=== PATIENT | male | born 1960 | race Caucasian/White ===

== ENCOUNTER 2022-03-01 00:30 | Day surgery (SDC) | payer MEDICARE, MEDICAID, SELFPAY ==
[2022-02-22 14:54] VITALS: BMI 28.3
--- NOTE | 2022-02-23 08:35 | PC.NURSE ---
Report to the Outpatient Waiting Room, entrance under the green pavilion located off [facility], at time 6:00 on date 03/01/22. Procedure Time: 7:30. - You and your visitor will be asked a series of questions to screen for COVID 19 for your protection. - A mask is required within the hospital. One visitor will be allowed to accompany the patient into the hospital. Patients visitor will be instructed to remain with patient at all times or leave the building. We will allow the visitor to come back to the postoperative area when patient is ready. Preoperative COVID Testing Requirements: No COVID Test needed if: (proof is required; if not received patient will have Rapid Test prior to entry) - Patient has received COVID Vaccine at least 14 days prior to procedure date or - Patient has positive COVID test result within last 90 days of surgery date. COVID Test needed if above criteria is not met Patients may have clear liquids (water, carbonated beverages, clear teas, apple juice) until 3 hours prior to surgery (4:30) with a maximum of 20 ounces. - No food from midnight until time of surgery Take the following medications with a SIP of water the morning of surgery: AMLODIPINE, LEVOTHYROXINE Medications to discontinue per physician: VITAMINS/SUPPLEMENTS Date to take last dose: 02/25/22 Please no make-up, nail georgian, hairspray, perfume, deodorant, or body powder the day of surgery. No jewelry (including any body piercings) or valuables the day of surgery, leave them at home. Please take a shower or bath the night before, or the morning of, surgery with an antibacterial soap. Wear comfortable, loose fitting clothing. - Jewelry must be removed prior to entering the operating room. Rings and piercings that are not removed may be cut off. - The hospital will not accept responsibility for valuables. - Please leave all valuables, including medications, at home the day of surgery. If you are going home after surgery, a licensed bookmobile driver must drive you home. - NO public transportation without another adult. - We recommend that an adult stay with you for 24 hours following discharge. - We also recommend that you do not drive, make important decision, drink alcoholic beverages, or take any drugs that were not prescribed by your health care provider for at least 24 hours after your discharge time. Follow any additional instructions given to you from your surgeon. WRITTEN instructions FAXED to [facility]DR[facility] and asked if any additional questions and then verbalized understanding. Patient advised to call surgeon office or pre surgery nurse liaison [phone] if any additional questions.
[2022-03-01] VITALS (9 sets, daily range): BP systolic 71–140; BP diastolic 34–79; PULSE 61–91; RESP 14–18; TEMP 36.1; O2SAT 96–100
--- NOTE | ~2022-03-01 | XR_ITS ---
EXAMINATION: XR urethrocystogram EXAM DATE: 03/01/2022 08:13 INDICATION: Urethral stricture. TECHNIQUE: Fluoroscopy used during XR urethrocystogram performed by Dr. Stephen Whiting MD. Radiologist was not present for the imaging or procedure. Total fluoroscopic time of 19 seconds. Th e DAP for this procedure was 0.2 mGym2. A total of 8 images sent to PACS from the exam. There is no prior study for comparison. FINDINGS: The urethra was injected. There is some stricturing of the urethra suspected probably rachelle g the bulbous portion or bulbomembranous junction. Probable dilation of the urethra. Left of the bladder there is focal region which appears to fill with contrast, most likely a bladder diverticulum given its size approximately 1.5 x 3 cm. Correlate with procedure note. IMPRESSION: Fluoroscopy used during cystourethrogram. Reviewed, dictated and finalized at location A.
--- NOTE | 2022-03-01 06:28 | P.PNAN_ITS ---
Anes - Initial Pre Proc Eval Procedure: Operation Date: 03/01/22 07:30 Proposed Procedures p Cystoscopy, Retrograde Urethrogram, Urethral Dilatation, Possible Meatotomy - Stephen Whiting MD Date/Time: 03/01/22 06:28 Surgeon: Stephen Whiting MD Pre Op Diagnosis: urethral stricture Patient Data Age: 61 Gender: M Height: 1.57 m Weight: 70.32 kg Allergies Allergy/AdvReac Type Severity Reaction Status Date / Time cephalexin Allergy Unknown Verified 03/01/22 06:19 meperidine Allergy Unknown Verified 03/01/22 06:19 Home Medications Medication Instructions Recorded Confirmed Type acetaminophen 650 mg PO Q4H PRN 02/22/22 03/01/22 History amlodipine 10 mg PO DAILY 02/22/22 03/01/22 History atorvastatin [Lipitor] 20 mg PO DAILY 02/22/22 03/01/22 History benazepril 20 mg PO DAILY 02/22/22 03/01/22 History bisacodyl [Dulcolax (bisacodyl)] 10 mg RECTAL DAILY PRN 02/22/22 03/01/22 History calcium carbonate-vitamin D3 1 tablet PO BID 02/22/22 03/01/22 History chlorhexidine gluconate 15 ml BUCCAL BID 02/22/22 03/01/22 History dextromethorphan-guaifenesin 10 ml PO Q4H PRN 02/22/22 03/01/22 History docusate sodium [Colace] 100 mg PO DAILY 02/22/22 03/01/22 History eyelid cleanser combination 5 1 pad TOPICAL DAILY PRN 02/22/22 03/01/22 History [OcuSoft Lid Scrub] finasteride 5 mg PO DAILY 02/22/22 03/01/22 History levothyroxine 50 mcg PO DAILY 02/22/22 03/01/22 History loratadine 10 mg PO DAILY 02/22/22 03/01/22 History magnesium hydroxide 30 ml PO DAILY PRN 02/22/22 03/01/22 History metformin 1,000 mg PO QAM 02/22/22 03/01/22 History metformin 500 mg PO HS 02/22/22 03/01/22 History ondansetron HCl [Zofran] 4 mg PO Q6H PRN 02/22/22 03/01/22 History piperacillin-tazobactam 3.375 g IV Q6H 02/22/22 02/22/22 History polyethylene glycol 3350 [GlycoLax] 17 g PO DAILY 02/22/22 03/01/22 History psyllium [Fiber Therapy (psyllium)] 1 tbsp PO BID 02/22/22 03/01/22 History tamsulosin 0.4 mg PO HS 02/22/22 03/01/22 History Patient hx anesthesia problems: none Family hx anesthesia problems: none Results Review: All pre-operative results and documents have been reviewed as part of the pre-operative evaluation. [facility] Past Medical History Medical History (Updated 02/28/22 @ 15:29 by Mirza Mujica DO) Anxiety Diabetes type 2, controlled GERD (gastroesophageal reflux disease) Hypertension Hypothyroidism Intellectual disability Social History Social History Living arrangements: intermediate Anes - [facility] Final PreProcedure Day of Procedure 03/01/22 06:28 Patient weight: overweight Heart: regular rate and rhythm Lungs: clear to auscultation and normal air movement Airway: Mallampati scale class II Neurological: alert and oriented Last oral intake: >/= 8 hours ASA classification: III Emergent: no Anesthetic plan: proceed Anesthesia type and monitoring: general LMA and standard monitoring Results Review: All pre-operative results and documents have been reviewed as part of the pre-operative evaluation. Informed Consent: The patient's anesthetic plan and its attendant risks and benefits were discussed with the patient/family/POA. Questions were solicited and answers provided to the satisfaction of the patient/family/POA.
[2022-03-01 06:45] LABS: Glucose Point of Care 142 mg/dl (65-105)
[2022-03-01] MEDS: LACTATED RINGERS 1,000 ML 30 ML IV CONT ×2 (06:45→08:49)
--- NOTE | 2022-03-01 06:51 | SUR.PREOP ---
career counselor at side,pt oriented to person .
--- NOTE | 2022-03-01 07:15 | WPDHPUPDATE1 ---
History and Physical Update Update Date/Time: 03/01/22 07:15 History and Physical has been reviewed, including an updated exam of the patient. There are NO changes in the patient's condition. Risks, benefits, and alternatives have been discussed and questions answered. Patient agrees to proceed with procedure. Proceed with retrograde, urethrogram, urethral dilation and cysto with possible meatotomy
[2022-03-01] MEDS: levoFLOXacin 500 MG/D5W 100 ML 500 MG/100 ML BAG 100 MG IVPB (07:25)
[2022-03-01] MEDS: LIDOCAINE HCL 2% GEL UROJET 10 ML PKG MUCOUS MEM ×2 (07:37→08:01)
--- NOTE | 2022-03-01 08:10 | W.PM.PROC2 ---
Procedure Note - Detailed Date of Procedure 03/01/22 Pre-op Diagnosis urethral stricture Post-op Diagnosis Same Procedure Performed Meatotomy, retrograde urethrogram, urethral dilation to 22 [place], cystoscopy, complex Lopez catheter placement Surgeon Stephen Whiting MD Anesthesia General Findings Meatal stenosis, tight fibrotic appearing urethra almost in its entirety, large capacity floppy bladder with moderate trabeculation and cellule formation. Description of Procedure Patient is taken to the operative suite and correctly identified. Once anesthesia was obtained he was placed in dorsal lithotomy position and prepped and draped usual sterile fashion. He has a tight meatus with some fibrotic tissue. We could not dilate this area. We thus did a meatotomy and placed 4-0 chromic sutures to reapproximate the mucosa to the glanular tissue. Retrograde urethrogram was then performed. The urethra was somewhat irregular in appearance. We cannot place a 19 [place] scope in to the tightness of the urethra. We thus used male sounds and dilated up to 22 [place]. Nineteen [place] scope was then inserted. His urethra is somewhat fibrotic appearing throughout the entire urethra. Prostate is nonobstructive. The bladder itself is heavily trabeculated with cellule formation. Has very floppy appearance. There were no tumors noted. Scope was removed. 2% viscous lidocaine was inserted urethra. Eighteen [place] Lopez was placed inflated with 10 cc in the balloon. Will plan on Lopez removal on Monday. If catheterizations remain difficult patient will either need a suprapubic tube or referral to [facility] for discussion of any reconstructive procedures. Drains Yes Packing No Pathology None sent Complications No immediate complications Condition Stable Disposition PACU
[2022-03-01 08:19] LABS: Glucose Point of Care 182 mg/dl (65-105)
== END 2022-03-01 10:01 | disposition home or self-care (01) ==
PROVIDERS: PCP Family Medicine; Visit Provider Urology
PROC: 0T7D8ZZ Dilation of Urethra, Via Natural or Artificial Opening Endoscopic (ICD-10-PCS; CPT 52281; principal; 2022-03-01 07:30)
DX: N35.911 Unspecified urethral stricture, male, meatal (principal); N32.89 Other specified disorders of bladder; I10 Essential (primary) hypertension; E11.9 Type 2 diabetes mellitus without complications; E03.9 Hypothyroidism, unspecified; K21.9 Gastro-esophageal reflux disease without esophagitis; F41.9 Anxiety disorder, unspecified; F79 Unspecified intellectual disabilities; Z79.84 Long term (current) use of oral hypoglycemic drugs
CPT/HCPCS: 52000; 51610; 74450; 82948; A9270; C1758; J1956; J2370; J2405; J2704; J7120; Q9966